=== PATIENT | female | born 1945 | race Caucasian/White ===

== ENCOUNTER 2021-05-04 14:25 | Emergency (ER) | payer MEDICARE, OTHER ==
[2021-05-04 15:26] VITALS: BP 141/65; PULSE 66
== END 2021-05-04 15:52 | disposition home or self-care (01) ==
LOC: JP.ED 14:25
DX: R07.89 Other chest pain (principal); Z88.8 Allergy status to other drugs, medicaments and biological substances; Z88.0 Allergy status to penicillin; Z88.2 Allergy status to sulfonamides; Z79.82 Long term (current) use of aspirin; Z79.899 Other long term (current) drug therapy
CPT/HCPCS: 36415; 84484; 93005; 99285-25

== ENCOUNTER 2023-01-15 14:47 | Emergency (ER) | payer MEDICARE, OTHER ==
[2023-01-15 16:48] VITALS: BP 155/60; PULSE 71
== END 2023-01-15 17:00 | disposition home or self-care (01) ==
LOC: JP.ED 14:47
DX: R55 Syncope and collapse (principal); S90.32XA Contusion of left foot, initial encounter; M25.462 Effusion, left knee; Z88.1 Allergy status to other antibiotic agents; Z88.0 Allergy status to penicillin; Z88.2 Allergy status to sulfonamides; W22.8XXA Striking against or struck by other objects, initial encounter
CPT/HCPCS: 73562-26-LT; 73562-LT; 73630-26-LT; 73630-LT; 99284